=== PATIENT | male | born 1955 | race Caucasian/White ===

== ENCOUNTER → 2018-04-14 07:27 | Outpatient (CLI) | payer OTHER, SELFPAY ==
[2018-04-14 10:33] LABS: ALB/GLOB Ratio 1.2 RATIO (0.9-2.4); AST(SGOT) 21 U/L (15-37); Alanine Aminotransfer ALT/SGPT 48 U/L (16-61); Alkaline Phosphatase 71 U/L (45-117); Anion Gap 7 (5-15); BUN 16 mg/dL (7-18); BUN/Creat Ratio 15.1 RATIO (10-20); Calcium,Total 9.3 mg/dL (8.5-10.1); Chloride 102 mmol/L (98-107); Cholesterol 213 mg/dL (200); Creatinine, Serum 1.06 mg/dL (0.70-1.30); EST Glomerular Filtration Rate 75 mL/min (>60); Est Glom Filt Rate - Afr Amer 91 mL/min (>60); Globulin 3.4 g/dL (2.2-4.2); Glucose 103 mg/dL (74-106); High Density Lipoprotein 40 mg/dL; Potassium 4.1 mmol/L (3.5-5.1); Protein, Total 7.4 g/dL (6.4-8.2); Sodium Level 140 mmol/L (136-145); Triglycerides 151 mg/dL; Very Low Density Lipoprotein 30 mg/dL (5-40)
== END ==
PROVIDERS: Family Provider Family Medicine; PCP Family Medicine; Referring Provider Family Medicine; Visit Provider Family Medicine
DX: I10 Essential (primary) hypertension (principal); E78.00 Pure hypercholesterolemia, unspecified; M53.9 Dorsopathy, unspecified
CPT/HCPCS: 36415; 80053; 80061

== ENCOUNTER → 2018-08-01 15:44 | Outpatient (CLI) | payer OTHER, SELFPAY ==
[2018-08-01 15:08] VITALS: BMI 32.0
--- NOTE | 2018-08-01 15:47 | RAD_ITS ---
STUDY: X-RAY - RIGHT SHOULDER REASON FOR EXAM: Male, 63 years old. Fall on ice. TECHNIQUE: 4 view(s) of the shoulder, including frontal internal and external rotation views. COMPARISON: None. FINDINGS: There is mild to moderate degenerative arthrosis of the glenohumeral articulation. There is mild hypertrophic osteoarthrosis of the acromioclavicular joint with inferior osseous spur formation. Normal acromion. There is inferior periarticular spurring of the humeral head. Mild cortical irregularity and subcortical cystic degenerative change in the greater tubercle of the humerus. The soft tissue structures are unremarkable. There is no demonstrated fracture. Normal visualized pulmonary apex. RAD/Shoulder min 2 Views IMPRESSION: Generative changes of the right shoulder and acromioclavicular joint, as noted. There is no demonstrated acute fracture. Electronically Signed: Beto Wade MD at 16:09 EST , Service support ,
== END ==
PROVIDERS: Family Provider Family Medicine; PCP Family Medicine; Referring Provider Nurse Practitioner Family; Visit Provider Nurse Practitioner Family
DX: M25.511 Pain in right shoulder (principal); W00.9XXA Unspecified fall due to ice and snow, initial encounter
CPT/HCPCS: 73030

== ENCOUNTER → 2018-08-27 15:15 | Outpatient (CLI) | payer OTHER, SELFPAY ==
[2018-08-19 15:21] VITALS: BMI 32.0
--- NOTE | 2018-08-27 15:15 | RAD_ITS ---
STUDY: X-RAY - ORBITS REASON FOR EXAM: Male, 63 years old. This study is being performed as a clearance examination for exclusion of orbital metal, prior to the performance of an MRI examination. TECHNIQUE: 2 view(s) of the orbits were obtained. COMPARISON: None. FINDINGS: Normal bilateral orbits without a metallic orbital foreign body. Normal visualized facial bones. Normal paranasal sinuses. The soft tissue structures are unremarkable. RAD/Orbits for Foreign Body IMPRESSION: No demonstrated metallic orbital foreign body. The patient is cleared for an MRI examination. Electronically Signed: Aaron Bingham, at 15:56 EST , Service support ,
--- NOTE | 2018-08-27 15:18 | MRI_ITS ---
STUDY: MRI RIGHT SHOULDER REASON FOR EXAM: Male, 63 years old. Shoulder pain TECHNIQUE: Standardized fat and water weighted pulse sequences were obtained in all 3 orthogonal planes. COMPARISON: None. FINDINGS: There is a full-thickness tear of the supraspinatus tendon which is retracted 2.4 cm. There is elevation of the humeral head in relationship to the acromion. There is increased T2 signal within the distal infraspinatus tendon which is not retracted.. The subscapularis tendon is intact. There is small fluid collection within the joint. There are multiple small signal abnormalities within the joint fluid. There is edema within the soft tissues with increased T2 signal. There are articular and small osteochondral defects within the greater tuberosity. There is small subchondral geodes. There are humeral head and glenoid osteophytes. There are likely small glenoid articular defects.. There is deformity with increased signal within the anterior superior labrum.. There are distal clavicle and acromial osteophytes which cause significant compression on the supraspinatus muscle and tendon. Normal deltoid muscle. Normal trapezius muscle. There is thickening of the anterior-inferior capsule. MRI/Upper Ext Joint Only(Routine) IMPRESSION: Full-thickness tear of the supraspinatus tendon which is related retracted 2.4 cm Tendinosis and possible partial tear of the infraspinatus tendon Small fluid collection within the joint, multiple small signal abnormalities within the joint fluid, most likely a small joint mice versus synovial osteochondromatosis less likely Glenohumeral osteoarthrosis, likely small glenoid cartilage defects Thickening of the anterior inferior capsule which can be associated with adhesive capsulitis Significant degeneration anterosuperiorly labrum likely degenerative tear Articular and osteochondral defects within the greater tuberosity Electronically Signed: Peewee Matias, at 22:03 EST Tel , Service support ,
== END ==
PROVIDERS: Family Provider Family Medicine; PCP Family Medicine; Referring Provider Family Medicine; Visit Provider Family Medicine
DX: M79.601 Pain in right arm (principal)
CPT/HCPCS: 70030; 73221

== ENCOUNTER → 2019-06-10 07:49 | Outpatient (CLI) | payer OTHER, SELFPAY ==
[2019-05-21 15:22] VITALS: BMI 32.3
[2019-06-10 10:27] LABS: ALB/GLOB Ratio 1.2 RATIO (0.9-2.4); AST(SGOT) 26 U/L (15-37); Alanine Aminotransfer ALT/SGPT 62 U/L (16-61); Alkaline Phosphatase 83 U/L (45-117); Anion Gap 6 (5-15); BUN 16 mg/dL (7-18); BUN/Creat Ratio 14.5 RATIO (10-20); Chloride 104 mmol/L (98-107); Cholesterol 206 mg/dL (200); EST Glomerular Filtration Rate 72 mL/min (>60); Est Glom Filt Rate - Afr Amer 87 mL/min (>60); Globulin 3.4 g/dL (2.2-4.2); Glucose 91 mg/dL (74-106); High Density Lipoprotein 39 mg/dL; Potassium 3.5 mmol/L (3.5-5.1); Protein, Total 7.4 g/dL (6.4-8.2); Sodium Level 140 mmol/L (136-145); Triglycerides 195 mg/dL; Very Low Density Lipoprotein 39 mg/dL (5-40)
== END ==
PROVIDERS: Family Provider Family Medicine; PCP Family Medicine; Referring Provider Family Medicine; Visit Provider Family Medicine
DX: E78.00 Pure hypercholesterolemia, unspecified (principal); I10 Essential (primary) hypertension
CPT/HCPCS: 36415; 80053; 80061

== ENCOUNTER 2019-12-11 23:31 | Emergency (ER) | payer OTHER, SELFPAY ==
[2019-05-21 15:22] VITALS: BMI 32.3
[2019-12-11 23:32] VITALS: BP 139/85; PULSE 80; RESP 18; TEMP 36.6; O2SAT 97; BMI 28.0
[2019-12-12] MEDS: oxyCODONE 5 MG Tablet PO (00:55)
[2019-12-12] MEDS: Ondansetron ODT 4 MG Tablet 8 MG PO (00:55)
[2019-12-12] MEDS: Ketorolac 30 MG/ML Syringe IM (00:55)
[2019-12-12 01:04] LABS: Bacteria 0 SEEN /hpf (None Seen); Mucous, Urine 0 SEEN /hpf (<or=2+); Squamous Epithelial Cells - UA 0 SEEN /hpf (0-5); White Blood Cells 0 SEEN /hpf (0-5)
[2019-12-12 01:07] LABS: Color, Urine Yellow (Yellow); Glucose, Dipstick Normal (Normal); Leukocyte Esterase-Dipstick Negative /ul (Negative); Nitrite-Dipstick Negative (Negative); Occult Blood-Urine 250 /ul (Negative); Protein-Dipstick Negative (Negative); Urine Bilirubin Dipstick Negative (Negative); Urine Clarity Clear (Clear); Urine Urobilinogen Normal (Normal)
[2019-12-12 01:33] LABS: Ketone-Dipstick 150 mg/dl (Negative)
[2019-12-12 01:54] LABS: Red Blood Cells-Urine 25-50 SEEN /hpf (0-5)
--- NOTE | 2019-12-12 02:03 | ED.DCSUM_ITS ---
History of Present Illness Chief Complaint: Flank Pain Informant: Patient, Family - Abdominal Pain/Flank Pain Onset: Yesterday Context: Sudden Onset Timing: Intermittent Quality: Aching Location: Right Flank - mostly in back Current Severity: Gone Maximum Severity: Severe Relieved by: Nothing - Nausea/Vomiting/Emesis GI Symptom: Nausea. Negative for: Vomiting - Diarrhea/Melena/Hematochezia GI Symptom: Negative for: Diarrhea, Melena, Hematochezia Associated Symptoms: Dysuria - once. Negative for: Frequency, Hematuria, Urgency Narrative: No injury, spontaneous onset of pain. No fevers. No chest pain or shortness of breath. No history of kidney stones. - Past Medical History (1) High blood pressure Status: Chronic (2) High cholesterol Status: Chronic Past Medical History - Allergies and Home Meds Allergies/Adverse Reactions: Allergies Penicillins Allergy (Intermediate, Verified 09/04/18 09:18) Rash Primary Care Physician: Hossein Rivera DO [Primary Care Provider] - Lives: Spouse/ Significant Other Smoking Status: Never smoker Review of Systems General: Denies: Chills, Fever, Sweats Eyes: Denies: Visual changes - bilaterally, Diplopia ENT: Denies: Rhinorrhea, Sore throat Cardiovascular: Denies: Chest pain, Palpitations Respiratory: Denies: Dyspnea, Cough, Dyspnea on exertion Gastrointestinal: Reports: Abdominal pain, Nausea. Denies: Vomiting, Diarrhea, Melena, Hematochezia Genitourinary: Reports: Dysuria. Denies: Hematuria, Frequency Musculoskeletal: Reports: Back pain. Denies: Neck pain, Extremity Pain Skin: Denies: Rash, Wounds Neurological: Denies: Headache, Weakness, Numbness Physical Exam Vital Signs/Narrative: Vital Signs Temp Pulse Resp BP Pulse Ox 12/11/19 23:32 97.8 F 80 18 139/85 H 97 Inital Vital Signs reviewed: Yes General: Well nourished, Well developed, No Acute Distress Head: Normocephalic, Atraumatic Eyes: Perrl, EOMI ENT: Moist mucous membranes, No rhinorrhea Neck: Supple, Nontender Cardiovascular: Regular rate, Regular rhythm, No murmurs Respiratory: No distress, CTA bilaterally, Chest nontender Abdomen: Soft, Nontender, Nondistended, Normal bowel sounds Back: Nontender, Normal Inspection. Negative for: CVA tenderness Extremities: Nontender, No edema. Negative for: Calf Tenderness Skin: Normal color, No rash, No Trauma Neurological: Alert, Oriented x3, Cranial nerves II-XII grossly intact, Normal Strength, Normal Sensation Psychological: Normal affect, Normal Mood Diagnostic/Tx/Re-eval Impressions Abdomen/Pelvis CT 12/12/19 23:55 IMPRESSION: There is a 3 mm stone at the RIGHT ureterovesical junction causing moderate RIGHT hydronephrosis and hydroureter. The LEFT kidney and ureter are unremarkable. Incidental retroaortic LEFT renal vein. Normal visualized stomach. Normal small intestine. Normal colon. The appendix is visualized and appears normal. There is degenerative disc change at L4-5 and L5-S1. There is bilateral facet arthropathy at these levels. There is bilateral spondylolysis and grade 1 anterior spondylolisthesis at L5-S1. Electronically Signed: Aman Roy MD at 1:25 EDT , Service support , 12/12/19 23:55 Abdomen/Pelvis without Cont [CT] Stat Laboratory Results 12/12/19 00:45 Urine Color Yellow Urine Clarity Clear Urine pH 5.0 Ur Specific [place] 1.020 Urine Protein Negative Urine Glucose (UA) Normal Urine Ketones 150 H Urine Occult Blood 250 H Urine Nitrite Negative Urine Bilirubin Negative Urine Urobilinogen Normal Ur Leukocyte Esterase Negative Urine RBC 25-50 SEEN Urine WBC 0 SEEN Ur Squamous Epith Cells 0 SEEN Urine Bacteria 0 SEEN Urine Mucus 0 SEEN - Medical Decision Making Patient did start having significant flank pain again, this was treated with Toradol and oxycodone, he did well with improvement. CT does show a kidney stone which was suspected, it did not show a AAA or anything else dangerous. He has hydronephrosis from a 3 mm UVJ stone likely causing his symptoms. Urine shows no signs of infection. I do not think blood work is necessary right now, expectant management is indicated. Given prescription for analgesics, urine strainers, appropriate discharge instructions for follow-up with urology as needed if still having problems in a week, we discussed reasons to return. He i s comfortable with that plan. ED Disposition - Plan for ED Patient: Disposition: Home or Assisted Living Diagnosis: Urolithiasis, Ureteral colic Instructions: ED Renal Stone w Colic Prescriptions: Oxycodone HCl/Acetaminophen [Percocet 5/325] 1 tab PO Q6H PRN PRN 3 Days #12 tab PRN Reason: Pain Prescription Printed Ondansetron [Zofran Odt] 8 mg PO Q8H PRN PRN #10 tab PRN Reason: Nausea Prescription Printed Referrals: Hossein Rivera DO [Primary Care Provider] - Luis Daniel Luu MD [STAFF PHYSICIAN] - 1 Week if not improving
--- NOTE | 2019-12-12 23:55 | CT_ITS ---
STUDY: CT ABDOMEN AND PELVIS WITHOUT CONTRAST REASON FOR EXAM: Male, 64 years old. RT FLANK PAIN SINCE YESTERDAY RADIATION DOSAGE (If Supplied By Facility): CTDIvol = ( 9.47 ) mGy, DLP = ( 548.92 ) mGycm TECHNIQUE: Transaxial images were obtained from the dome of the diaphragm to the symphysis pubis without oral contrast, and without intravenous contrast. Sagittal and coronal images were reconstructed. Individualized dose optimization techniques were used for this CT. COMPARISON: None. FINDINGS: There are nonenlarged calcified RIGHT hilar lymph nodes. There is moderate COPD. There are NO acute infiltrates. Normal liver. Normal gallbladder and extrahepatic biliary system. Normal spleen. Normal pancreas. Normal bilateral adrenal glands. There is a 3 mm stone at the RIGHT ureterovesical junction causing moderate RIGHT hydronephrosis and hydroureter. The LEFT kidney and ureter are unremarkable. Incidental retroaortic LEFT renal vein. Normal visualized stomach. Normal small intestine. Normal colon. The appendix is visualized and appears normal. Normal abdominal aorta. Normal inferior vena cava. Normal retroperitoneum. Normal urinary bladder. Normal prostate. There is NO ascites, free air, abscess or adenopathy. Normal abdominal wall. There is degenerative disc change at L4-5 and L5-S1. There is bilateral facet arthropathy at these levels. There is bilateral spondylolysis and grade 1 anterior spondylolisthesis at L5-S1. CT/Abdomen/Pelvis without Cont IMPRESSION: There is a 3 mm stone at the RIGHT ureterovesical junction causing moderate RIGHT hydronephrosis and hydroureter. The LEFT kidney and ureter are unremarkable. Incidental retroaortic LEFT renal vein. Normal visualized stomach. Normal small intestine. Normal colon. The appendix is visualized and appears normal. There is degenerative disc change at L4-5 and L5-S1. There is bilateral facet arthropathy at these levels. There is bilateral spondylolysis and grade 1 anterior spondylolisthesis at L5-S1. Electronically Signed: Aman Roy MD at 1:25 EDT , Service support ,
== END 2019-12-12 02:31 | disposition home or self-care (01) ==
PROVIDERS: Emergency Provider Emergency Medicine; PCP Family Medicine
DX: N13.2 Hydronephrosis with renal and ureteral calculous obstruction (principal); E78.00 Pure hypercholesterolemia, unspecified; Z88.0 Allergy status to penicillin; M43.17 Spondylolisthesis, lumbosacral region; M51.37 Other intervertebral disc degeneration, lumbosacral region
CPT/HCPCS: 74176; 81001; 96372; 99283

== ENCOUNTER → 2021-04-04 12:09 | Outpatient (CLI) | payer MEDICARE, OTHER, SELFPAY ==
[2021-04-04 15:17] LABS: Absolute Lymphocyte Count 1.62 X10^3/uL (0.83-4.51); Absolute Neutrophil Count 2.1 X10^3/uL (2.0-7.7); Basophil# 0.05 X10^3/uL; Basophil% 1.1 % (0-1); Eosinophil# 0.29 X10^3/uL; Eosinophils% 6.1 % (0-5); Hematocrit 44.7 % (40-54); Hemoglobin 14.8 g/dL (13.0-16.5); Lymphocyte # 1.62 X10^3/ul (0.83-4.51); Lymphocyte % 34.2 % (19-41); Mean Corp Hgb Conc 33.1 g/dL (32-36); Mean Corpuscular Hgb 30.5 pg (27.0-32.0); Mean Corpuscular Volume 92.2 fL (80-94); Mean Platelet Vol. 10.5 fl (6.2-12.0); Monocyte# 0.64 X10^3/uL; Monocyte% 13.5 % (0-10); NRBC Flagged by Analyzer 0 % (0-5); Neutrophil # 2.13 X10^3/uL (2.7-7.7); Neutrophil % 44.9 % (47-70); Platelet Count 272 K/mm3 (150-450); RBC Distribution Width CV 12.3 % (11.6-14.6); RBC Distribution Width SD 40.6 fl (35.1-43.9); Red Blood Count 4.85 M/mm3 (4.6-6.2); White Blood Count 4.7 K/mm3 (4.4-11.0)
[2021-04-04 15:34] LABS: AST(SGOT) 23 U/L (15-37); Alanine Aminotransfer ALT/SGPT 36 U/L (16-61); Albumin, Serum 3.9 g/dL (3.2-5.0); Alkaline Phosphatase 74 U/L (45-117); Anion Gap 8 (5-15); BUN 17 mg/dL (7-18); BUN/Creat Ratio 18.4 RATIO (10-20); Calcium,Total 9.2 mg/dL (8.5-10.1); Chloride 106 mmol/L (98-107); Creatinine, Serum 0.93 mg/dL (0.70-1.30); EST Glomerular Filtration Rate 87 mL/min (>60); Est Glom Filt Rate - Afr Amer 105 mL/min (>60); Globulin 3.8 g/dL (2.2-4.2); Glucose 92 mg/dL (74-106); Protein, Total 7.7 g/dL (6.4-8.2); Sodium Level 142 mmol/L (136-145)
== END ==
PROVIDERS: PCP Family Medicine; Referring Provider Family Medicine; Visit Provider Family Medicine
DX: I10 Essential (primary) hypertension (principal); M53.9 Dorsopathy, unspecified
CPT/HCPCS: 36415; 80053; 85025

== ENCOUNTER → 2023-03-27 | Outpatient (CLI) | payer MEDICARE, OTHER, SELFPAY ==
--- NOTE | 2023-03-27 14:42 | RAD_ITS ---
STUDY: X-RAY CHEST REASON FOR EXAM: Male, 67 years old. dust exposure TECHNIQUE: Frontal and lateral views of the chest. COMPARISON: None. FINDINGS: Relatively low lung volumes. Streaky areas of mild scarring or subsegmental atelectasis in both lung bases. No infiltrates. No effusions. Normal size heart. Normal mediastinum and christina. Normal visualized pulmonary arteries. Normal visualized aortic arch and descending thoracic aorta. Normal visualized thoracic spine. Normal visualized ribs, clavicles, and shoulders. There is no demonstrated abnormality of the visualized soft tissue structures of the upper abdomen. RAD/Chest PA and Lateral IMPRESSION: Streaky areas of mild scarring or subsegmental atelectasis in both lung bases. Electronically Signed: Demetri Martini MD at 17:33 EDT ,
[2023-03-27 15:49] LABS: AST(SGOT) 25 U/L (15-37); Alanine Aminotransfer ALT/SGPT 43 U/L (16-61); Albumin, Serum 3.9 g/dL (3.2-5.0); Alkaline Phosphatase 78 U/L (45-117); Anion Gap 3 (5-15); BUN 17 mg/dL (7-18); BUN/Creat Ratio 17.2 RATIO (10-20); Calcium,Total 9.1 mg/dL (8.5-10.1); Chloride 106 mmol/L (98-107); Cholesterol 201 mg/dL (200); Creatinine, Serum 0.99 mg/dL (0.70-1.30); EST Glomerular Filtration Rate 81 mL/min (>60); Est Glom Filt Rate - Afr Amer 97 mL/min (>60); Globulin 3.9 g/dL (2.2-4.2); Glucose 101 mg/dL (74-106); High Density Lipoprotein 39 mg/dL; PSA,Total- Diagnostic 0.97 ng/mL (0.0-4.0); Potassium 3.9 mmol/L (3.5-5.1); Protein, Total 7.8 g/dL (6.4-8.2); Sodium Level 139 mmol/L (136-145); Triglycerides 292 mg/dL; Very Low Density Lipoprotein 58 mg/dL (5-40)
== END | disposition home or self-care (01) ==
PROVIDERS: PCP Family Medicine; Referring Provider Family Medicine; Visit Provider Family Medicine
DX: R05.3 Chronic cough (principal); E78.00 Pure hypercholesterolemia, unspecified; R39.11 Hesitancy of micturition; I10 Essential (primary) hypertension
CPT/HCPCS: 36415; 71046; 80053; 80061; 84153

== ENCOUNTER → 2023-05-31 | Outpatient (CLI) | payer MEDICARE, OTHER, SELFPAY ==
--- NOTE | 2023-05-31 09:00 | RAD_ITS ---
STUDY: X-RAY - RIGHT KNEE REASON FOR EXAM: Male, 68 years old. One month history of pain following a twisting injury. TECHNIQUE: 4 view(s) of the knee. COMPARISON: None. FINDINGS: Normal visualized distal femur. Normal visualized proximal tibia and fibula. Normal proximal tibiofibular articulation. There is mild degenerative arthrosis of the medial femorotibial compartment. Normal lateral femorotibial compartment. Normal patellofemoral articulation. Tiny joint effusion. RAD/Knee 4 or More Views IMPRESSION: Degenerative arthrosis. Tiny joint effusion. Electronically Signed: Aaron Bingham MD at 12:37 EST ,
== END | disposition home or self-care (01) ==
PROVIDERS: PCP Family Medicine; Referring Provider Physician Assistant; Visit Provider Physician Assistant
DX: M25.561 Pain in right knee (principal)
CPT/HCPCS: 73564

== ENCOUNTER → 2024-02-18 | Outpatient (CLI) | payer MEDICARE, OTHER, SELFPAY ==
[2024-02-18 16:54] LABS: Basophil# 0.05 X10^3/uL; Basophil% 0.8 % (0-1); Eosinophil# 0.36 X10^3/uL; Eosinophils% 5.6 % (0-5); Hematocrit 47.6 % (40-54); Hemoglobin 15.7 g/dL (13.0-16.5); Lymphocyte % 21.7 % (19-41); Mean Corpuscular Volume 94.1 fL (80-94); Mean Platelet Vol. 10.4 fl (6.2-12.0); Monocyte# 0.65 X10^3/uL; Monocyte% 10.1 % (0-10); NRBC Flagged by Analyzer 0 % (0-5); Neutrophil # 3.96 X10^3/uL (2.7-7.7); Neutrophil % 61.5 % (47-70); Platelet Count 268 K/mm3 (150-450); RBC Distribution Width CV 12.2 % (11.6-14.6); RBC Distribution Width SD 42.3 fl (35.1-43.9); Red Blood Count 5.06 M/mm3 (4.6-6.2); White Blood Count 6.4 K/mm3 (4.4-11.0)
[2024-02-18 17:01] LABS: ALB/GLOB Ratio 1.1 RATIO (0.9-2.4); AST(SGOT) 25 U/L (15-37); Alanine Aminotransfer ALT/SGPT 41 U/L (16-61); Alkaline Phosphatase 72 U/L (45-117); Anion Gap 4 (5-15); BUN 16 mg/dL (7-18); BUN/Creat Ratio 13.9 RATIO (10-20); Calcium,Total 9.6 mg/dL (8.5-10.1); Chloride 105 mmol/L (98-107); Cholesterol 220 mg/dL (200); Creatinine, Serum 1.15 mg/dL (0.70-1.30); EST Glomerular Filtration Rate 67 mL/min (>60); Est Glom Filt Rate - Afr Amer 81 mL/min (>60); Globulin 3.7 g/dL (2.2-4.2); Glucose 93 mg/dL (74-106); High Density Lipoprotein 46 mg/dL; Potassium 4.2 mmol/L (3.5-5.1); Protein, Total 7.7 g/dL (6.4-8.2); Sodium Level 138 mmol/L (136-145); Triglycerides 272 mg/dL; Very Low Density Lipoprotein 54 mg/dL (5-40)
== END | disposition home or self-care (01) ==
LOC: BIMLAB 14:44
PROVIDERS: PCP Family Medicine; Visit Provider Family Medicine
DX: E78.5 Hyperlipidemia, unspecified (principal); I10 Essential (primary) hypertension; R53.83 Other fatigue
CPT/HCPCS: 36415; 80053; 80061; 84403; 85025

== ENCOUNTER 2024-03-18 06:09 | Day surgery (SDC) | payer MEDICARE, OTHER, SELFPAY ==
[2024-03-18] VITALS (9 sets, daily range): BP systolic 107–143; BP diastolic 72–96; PULSE 58–84; RESP 16–18; TEMP 36.2–36.4; O2SAT 97–99; BMI 31.3
[2024-03-18] MEDS: Lactated Ringers 1,000 ML 15 ML IV (06:35)
--- NOTE | 2024-03-18 06:38 | HP.PCM_ITS ---
HPI - General General Date of Admission: 03/18/24 Date of Service: 03/18/24 Chief Complaint: Screening colonoscopy HPI Narrative MELLY STOCKTON, is a 68 M who presents today for screening colonoscopy. He is not have any abdominal pain. He does not have any cramping. He is not have any chest pain or shortness of breath. He had a colonoscopy back some of the 10 to 12 years ago. The only medicine that he takes on a daily basis is valsartan. [facility] Medical History (Updated 03/16/24 @ 13:59 by Rajan Lloyd) Wears glasses Arthritis Non-smoker Hx of colonic polyps Right shoulder injury High cholesterol High blood pressure Hearing problem Back problem Home Medications ?Medication ?Instructions ?Recorded ?Last Taken ?Type zfxkdwrgwxam-jenchxsm-zjrzqr tablet 1 tab PO DAILY 04/10/18 03/17/24 History naproxen sodium 220 mg capsule 220 mg PO DAILY 03/27/23 03/17/24 History (Aleve) valsartan 160 mg tablet 160 mg PO DAILY 03/16/24 Unknown History valsartan 80 mg tablet 80 mg PO BID 03/16/24 03/18/24 History Allergy/AdvReac Type Severity Reaction Status Date / Time Penicillins Allergy Intermediate Rash Verified 03/18/24 06:34 Family History Father Myocardial infarction Heart disease Hypertension Abdominal aneurysm Mother Hypertension CVA (cerebral vascular accident) Surgical History Hx of colonoscopy Social History (Updated 02/25/24 @ 11:09 by Dhara Maki) household members: spouse housing: house current occupational status: employed Smoking Status: Never smoker alcohol intake: current alcohol intake frequency: a few times a month substance use type: does not use what type of physical activity do you participate in: none ROS Review of Systems ROS Unobtainable: other Constitutional Constitutional: Denies fatigue, fever(s), poor appetite, weight gain or weight loss ENT HEENT: Denies mouth lesions Cardiovascular Cardiovascular: Denies abdominal bloating, abdominal edema or abdominal pain Respiratory/Chest Respiratory/Chest: Denies change in mental status, change in phlegm color, chest congestion or chest tightness Gastrointestinal Gastrointestinal: Denies belching, bloating, change in bowel habits, change in stool character, chewing difficulty, coffee ground emesis, constipation, cramping, diarrhea, dyspepsia, dysphagia, early satiety, excessive flatus, fecal incontinence, heartburn, hematemesis, hematochezia, hemorrhoids, loose stools, melena, nausea, odynophagia, rectal bleeding, tenesmus, vomiting or weight changes Genitourinary Genitourinary: Denies abdominal discomfort, burning urination or itching Musculoskeletal Musculoskeletal: Reports as per HPI; Denies muscle weakness or myalgias Integumentary Integumentary: Denies jaundice Neurologic Neurologic: Denies lack of coordination or weakness Psychiatric Psychiatric: Denies confusion, depression, memory loss, mood swings, paranoia or suicidal ideation Endocrine Endocrinology: Denies systems reviewed and no addt'l complaints, except as documented Hematologic/Lymphatic Hematologic/Lymphatic: Denies anemia, easy bleeding, easy bruising or lymphadenopathy Allergic/Immunologic Allergic/Immunologic: Denies systems reviewed and no addt'l complaints, except as documented Physical Exam Const alert General Appearance: cooperative Orientation / Consciousness: oriented to person HEENT hearing grossly normal bilaterally Head and Scalp: normal to inspection Face and Sinus: face symmetric Nose: external nose normal Mouth: oral and palatal mucosa normal Eyes conjunctivae normal General Eye: normal appearance of both eyes Neck full ROM General: normal visual inspection Lymph Lymphatic: no lymphadenopathy noted Chest inspection of chest normal and palpation of chest normal Chest: symmetrical chest wall rise Resp normal respiratory effort Effort and Inspection: able to speak in complete sentences Cardio regular rate GI non-distended Percussion: normal to percussion Rectal Exam: deferred Neuro Speech: speech normal Gait (Neuro): normal gait Assessment & Plan Assessment/Plan (1) Encounter for screening for malignant neoplasm of colon: PLAN: He was explained alternatives, risk, benefits including not withstanding bleeding, infection, sepsis, perforation, need for surgery . He will have an ASA of 3.
--- NOTE | 2024-03-18 06:43 | PRE.ANES_ITS ---
ASA Classification* ASA Classification ASA Classification: 2 Assessment & Plan Anesthesia* Anesthesia Assessment Anesthesia Assessment: Discussed sedation and/or anesthesia options, risks, benefits, and alternatives with patient/parents/legal guardian/POA. Questions invited. The patient/parents/legal guardian/POA seems to understand and agrees to proceed with anesthesia plan. Reviewed the physical assessment, medical history, allergy history and patient home medications list prior to surgery/procedure/anesthetic and documented any changes. Performed airway and anesthesia risk assessments. Anesthesia Type Anesthesia Type: MAC Anesthesia Focused Assessment* Temperature: 97.2 F Pulse Rate: 84 Blood Pressure: 143/78 Respiratory Rate: 17 Pulse Ox: 99 Airway Assessment Mouth opens: >3 cm Mallampati Score: II Focused Labs Anesthesia Preop lab: CBC WBC 6.4 K/mm3 (4.4-11.0) 02/18/24 14:44 RBC 5.06 M/mm3 (4.6-6.2) 02/18/24 14:44 Hgb 15.7 g/dL (13.0-16.5) 02/18/24 14:44 Hct 47.6 % (40-54) 02/18/24 14:44 Plt Count 268 K/mm3 (150-450) 02/18/24 14:44 CHEMISTRY Potassium 4.2 mmol/L (3.5-5.1) 02/18/24 14:44 Sodium 138 mmol/L (136-145) 02/18/24 14:44 BUN 16 mg/dL (7-18) 02/18/24 14:44 Creatinine 1.15 mg/dL (0.70-1.30) 02/18/24 14:44 Glucose 93 mg/dL (74-106) 02/18/24 14:44 COAG Pre-Assessment Diagnosis/Proposed Procedure Planned Operative Procedure(s): COLONOSCOPY Anesthesia History Anesthesia History - supervisor fabrication: Anesthesia History - supervisor fabrication Hx Hospitalization No 03/16/24 13:48 Any Problems With Anesthesia No 03/16/24 13:48 Cholinesterase deficiency No 03/16/24 13:48 You/Your Family Experience No 03/16/24 13:48 fever (hyperthermia) with Relationship Recent Exposure to Contagious No 03/18/24 06:37 Disease Does patient have nerve No 03/16/24 13:48 stimulator Patient instructed to have device shut off --Does patient have Pacemaker No 03/18/24 06:37 or ICD? When Was Last Pacemaker Check QUESTION #4 FULL TEXT: You/Your Family Experience fever (hyperthermia) with Anesthesia Last Oral Intake Last Oral intake: Last Oral Intake NPO since 04:30 03/18/24 06:37 Meds taken in AM with sips of Yes 03/18/24 06:37 water? Meds patient instructed to losartan, split prep 03/18/24 06:37 take am of surgery PONV PONV - supervisor fabrication: PONV - supervisor fabrication Female No 03/16/24 13:48 HX of Motion Sickness No 03/16/24 13:48 HX of N/V After Surgery No 03/16/24 13:48 Non-Smoker Yes 03/16/24 13:48 Duration of Surgery greater No 03/16/24 13:48 than 60 minutes Number of Risk Factors 1 03/16/24 13:48 PONV Score Low Risk 03/16/24 13:48 Height & Weight Height & Weight: Anesthesia: Height & Weight Height 5 ft 10 in 03/18/24 06:37 Weight: 99 kg 03/18/24 06:37 Body Mass Index (BMI) 31.3 03/18/24 06:37 Respiratory Assessment Respiratory Assessment - supervisor fabrication: Respiratory Tract Infection Hx - supervisor fabrication Hx Respiratory Tract Infection No 03/16/24 13:48 STOP Sleep Apnea STOP Sleep Apnea - supervisor fabrication: STOP Sleep Apnea - supervisor fabrication Hx Hypertension Yes 03/16/24 13:48 Hx Sleep Apnea No 03/16/24 13:48 CPAP BIPAP Do you snore loudly (louder Yes 03/16/24 13:48 than talking or can be heard Do you often feel tired/ No 03/16/24 13:48 fatigued/ sleepy during daytime? Has anyone observed you stop No 03/16/24 13:48 breathing during sleep? STOP Results Positive 03/16/24 13:48 QUESTION #5 FULL TEXT : Do you snore loudly (louder than talking or can be heard through closed doors)? 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 Specify any problems Hx of Preganancy in last 3 N/A 03/16/24 13:48 Months Nurse Filling Out Transfusion [email or web address] 03/16/24 13:48 & Questions: Date: 03/16/24 03/16/24 13:48 Time: 13:53 03/16/24 13:48 Patient unable to answer at this time (ie. confused, unrespo /Reproduction History /Reproductive History - supervisor fabrication: /Reproductive Hx- supervisor fabrication Hx Now Gestational Age (in weeks): EDC: Hx Hx Para Hx Section SAB Active Medications Active Medications: Current Medications Generic Name Dose Route Start Last Admin Trade Name Freq PRN Reason Stop Dose Admin Lactated Ringer's 1,000 mls @ 15 mls/hr 03/18/24 06:30 03/18/24 06:35 IV 15 mls/hr .Q48H ALEX Administration PFSH Medical History Wears glasses Arthritis Non-smoker Hx of colonic polyps Right shoulder injury High cholesterol High blood pressure Hearing problem Back problem Home Medications ?Medication ?Instructions ?Recorded ?Last Taken ?Type qmyfvdqgomzt-rbgkijfq-ggfvhc tablet 1 tab PO DAILY 04/10/18 03/17/24 History naproxen sodium 220 mg capsule 220 mg PO DAILY 03/27/23 03/17/24 History (Aleve) valsartan 160 mg tablet 160 mg PO DAILY 03/16/24 Unknown History valsartan 80 mg tablet 80 mg PO BID 03/16/24 03/18/24 History Allergy/AdvReac Type Severity Reaction Status Date / Time Penicillins Allergy Intermediate Rash Verified 03/18/24 06:34 Family History Father Myocardial infarction Heart disease Hypertension Abdominal aneurysm Mother Hypertension CVA (cerebral vascular accident) Surgical History Hx of colonoscopy Social History household members: spouse housing: house current occupational status: employed Smoking Status: Never smoker alcohol intake: current alcohol intake frequency: a few times a month substance use type: does not use what type of physical activity do you participate in: none Review of Systems (Anesthesia) ROS Narrative System reviewed and no additional complaints, except as documented.
--- NOTE | 2024-03-18 07:30 | COLBX_PTH ---
PATIENT: MELLY STOCKTON GENE LOC: EN U#:[id number] AGE/SX: 68/M ROOM: RE03/18/[address]: Dr. Nathaniel Zamora DO : 1955 BED: DIS: 03/18/2024 SPEC #: [id number] RECD: 03/18/24 09:33 STATUS: KATLIN REVeronica #: [id number] LUPILLO: 03/18/24 07:[address]: Nathaniel Zamora DEPT: SURGICAL PATHOLOGY RECD BY: Rashawn Spears ENTERED: 03/18/24 14:12 SP TYPE: COLON BX OTHR DR: Dr. Hossein Rivera DO Tissues: Ascending colon Procedures: Surgery Specimen Level IV HEADER OPERATION: Colonoscopy with biopsy PRE-OP DIAGNOSIS: Encounter for screening for malignant neoplasm of colon TISSUE SUBMITTED: Ascending colon biopsy MICROSCOPIC DIAGNOSIS Ascending colon polyp, biopsy: No specimen/mucosal tissue is noted. SJ.mr 03/19/2024 COMMENT Case has been reviewed in consultation with Dr. Oneal who concurs with the above diagnosis. IDC:AM MICROSCOPIC DESCRIPTION Slides are reviewed. GROSS DESCRIPTION Received in fixative is one container labeled with the patient's name and designated Ascending colon polyp biopsy. No specimen is noted in the specimen container. Formalin is in filter and submitted for cell block preparation. 03/18/2024 TC: Cannot code CPT:13669
--- NOTE | 2024-03-18 07:43 | OP.COLON_ITS ---
Patient Name: Yohan Ledsema Procedure Date: 03/18/2024 7:06 AM Date of : 1955 Age: 68 Procedure: Colonoscopy Indications: Screening for colorectal malignant neoplasm Providers: Nathaniel Zamora DO Referring MD: Nathaniel Zamora DO Medicines: Monitored Anesthesia Care Patient Profile: This is a 68 year old male. Refer to note in patient chart for documentation of history and physical. Last Colonoscopy: more than 10 years ago. Complications: No immediate complications. Procedure: Pre-Anesthesia Assessment: - Prior to the procedure, a History and Physical was performed, and patient medications and allergies were reviewed. The patient is competent. The risks and benefits of the procedure and the sedation options and risks were discussed with the patient. All questions were answered and informed consent was obtained. Patient identification and proposed procedure were verified by the physician in the pre-procedure area. Mental Status Examination: alert and oriented. Airway Examination: normal oropharyngeal airway and neck mobility. Respiratory Examination: clear to auscultation. CV Examination: normal. Prophylactic Antibiotics: The patient does not require prophylactic antibiotics. Prior Anticoagulants: The patient has taken no anticoagulant or antiplatelet agents. ASA Grade Assessment: II - A patient with mild systemic disease. After reviewing the risks and benefits, the patient was deemed in satisfactory condition to undergo the procedure. The anesthesia plan was to use monitored anesthesia care (MAC). Immediately prior to administration of medications, the patient was re-assessed for adequacy to receive sedatives. The heart rate, respiratory rate, oxygen saturations, blood pressure, adequacy of pulmonary ventilation, and response to care were monitored throughout the procedure. The physical status of the patient was re-assessed after the procedure. After I obtained informed consent, the scope was passed under direct vision. Throughout the procedure, the patient's blood pressure, pulse, and oxygen saturations were monitored continuously. The Colonoscope was introduced through the anus and advanced to the cecum, identified by appendiceal orifice and ileocecal valve. The colonoscopy was performed without difficulty. The patient tolerated the procedure well. The quality of the bowel preparation was adequate. The ileocecal valve, appendiceal orifice, and rectum were photographed. Scope In: 7:21:15 AM Scope Withdrawal Time 0 hours 11 minutes 41 seconds Scope Out: 7:38:09 AM Total Procedure Duration Time 0 hours 16 minutes 54 seconds Findings: The perianal and digital rectal examinations were normal. A 3 mm polyp was found in the ascending colon. The polyp was sessile. The polyp was removed with a jumbo cold forceps. Resection and retrieval were complete. Verification of patient identification for the specimen was done. Estimated blood loss was minimal. No other significant abnormalities were identified in a careful examination of the remainder of the colon. Two small-mouthed diverticula were found in the recto-sigmoid colon. Impression: - One 3 mm polyp in the ascending colon, removed with a jumbo cold forceps. Resected and retrieved. - Diverticulosis in the recto-sigmoid colon. Recommendation: - Discharge patient to home. - Resume previous diet. - Continue present medications. - Await pathology results. - Repeat colonoscopy in 5 years for surveillance. Procedure Code(s): --- Professional --- 06236, Colonoscopy, flexible; with biopsy, single or multiple CPT copyright 2021 [employer]. All rights reserved. The codes documented in this report are preliminary and upon first aid attendant review may be revised to meet current compliance requirements. Nathaniel Zamora DO 03/18/2024 7:43:29 AM This report has been signed electronically. Number of Addenda: 0 Note Initiated On: 03/18/2024 7:06 AM
--- NOTE | 2024-03-18 07:44 | OP.CCLET_ITS ---
03/18/2024 Hossein Rivera Re : Colonoscopy procedure for Yohan Ledesma Dear Dr. Rivera This procedure was performed on Monday, March 18, 2024. My impressions and recommendations are as follows: Impressions : - One 3 mm polyp in the ascending colon, removed with a jumbo cold forceps. Resected and retrieved. - Diverticulosis in the recto-sigmoid colon. Recommendations : - Discharge patient to home. - Resume previous diet. - Continue present medications. - Await pathology results. - Repeat colonoscopy in 5 years for surveillance. My findings are described in the full procedure note, which is enclosed. If I can be of further assistance, please feel free to contact me at . Sincerely, Nathaniel Zamora, 03/18/2024 7:43:29 AM This report has been signed electronically.
--- NOTE | 2024-03-18 07:45 | PCM.POST.ANE ---
Anesthesia: Postop Eval I Current Vital Signs Temperature: 97.6 F Pulse Rate: 65 Blood Pressure: 126/76 Respiratory Rate: 16 Pulse Ox: 98 Oxygen Delivery Method: Room Air Assessment Airway patent: Yes Spontaneous unlabored respirations: Yes Mental status: Asleep nausea: No Vomiting: No Anesthesia Complication: No Fluid Hydration Crystalloid volume administer (ml): 600 Total IV fluid infused: 600 Progress Note Anesthesia document: Postop Eval 1 completed: Yes
--- NOTE | 2024-03-18 13:39 | PCM.POSTANE2 ---
Anesthesia Postop Eval I Sum Postop Eval Completion status Anesthesia document: Postop Eval 1 completed: Yes Anesthesia Postop Eval I Summary Anesthesia Postop Eval I Summary: Anesthesia Postop Eval I: Assessment Summary Airway patent Yes 03/18/24 07:46 [email or web address] Spontaneous unlabored Yes 03/18/24 07:46 [email or web address] respirations Mental status Asleep 03/18/24 07:46 [email or web address] nausea No 03/18/24 07:46 [email or web address] Vomiting No 03/18/24 07:46 [email or web address] Anesthesia Postop Eval I: Fluid Summary Crystalloid volume administer 600 03/18/24 07:46 [email or web address] (ml) Colloids volume administered ( ml) Blood Product volume administered (ml) Total IV fluid infused 600 03/18/24 07:46 [email or web address] Anesthesia Postop Eval I: Summary Notes Anesthesia Complication No 03/18/24 07:46 [email or web address] Anesthesia Complication Comment: Post-operative progress note Anesthesia: Postop Eval II Evaluation Mental status: Awake Pain Level: 0 nausea: No Vomiting: No
== END 2024-03-18 08:45 | disposition home or self-care (01) ==
LOC: EN 06:09 → AC 06:10
PROVIDERS: PCP Family Medicine; Referring Provider Family Medicine; Visit Provider Internal Medicine Gastroenterology
PROC: 0DJD8ZZ Inspection of Lower Intestinal Tract, Via Natural or Artificial Opening Endoscopic (ICD-10-PCS; CPT 45378; principal; 2024-03-18 07:25)
DX: Z12.11 Encounter for screening for malignant neoplasm of colon (principal); K63.5 Polyp of colon; K57.90 Diverticulosis of intestine, part unspecified, without perforation or abscess without bleeding; E78.00 Pure hypercholesterolemia, unspecified; Z86.010 Personal history of colon polyps; I10 Essential (primary) hypertension; Z79.899 Other long term (current) drug therapy
CPT/HCPCS: 45380; 88305; J7120; J2405

== ENCOUNTER → 2024-03-31 | Outpatient (CLI) | payer MEDICARE, OTHER, SELFPAY ==
--- NOTE | 2024-03-31 14:07 | CT_ITS ---
EXAM: CT Abdomen And Pelvis W/ Contrast Injection HISTORY: abdominal pain luq x 1 month TECHNIQUE: Routine protocol CT abdomen pelvis. IV Contrast: IV 100mL Isovue-300 . Oral Contrast: without. Sagittal and coronal images were reconstructed. RADIATION DOSAGE (If Supplied By Facility): CTDIvol = ( 14.58 ) mGy, DLP = ( 1316.79 ) mGycm Individualized dose optimization techniques were used for this CT. COMPARISON: CT abdomen and pelvis 12/12/2019. LIMITATIONS: None. FINDINGS: LOWER CHEST: Reticular opacities in the lung bases. Calcified granuloma right lower lobe, calcified lymph nodes in the right hilum. Coronary artery calcifications are noted. LIVER: Mild fatty infiltration. GALLBLADDER/BILE DUCTS: Unremarkable. PANCREAS: Unremarkable. SPLEEN: Small calcifications previous granulomatous process. ADRENAL GLANDS: Unremarkable. KIDNEYS / URETERS: Small calculus in the left kidney. No hydronephrosis. BOWEL / MESENTERY: Unremarkable. No bowel obstruction. APPENDIX: Identified and normal. No evidence of acute appendicitis. PERITONEUM: No free air. No free fluid. VESSELS: Abdominal aorta is normal caliber. RETROPERITONEUM: Unremarkable. REPRODUCTIVE ORGANS: Prostate enlarged. BLADDER: Unremarkable. ABDOMINAL WALL: Unremarkable. BONES: No acute abnormality. Bilateral pars defects at L5 with grade 1 spondylolisthesis and degenerative changes. OTHER: None. CT/Abdomen/Pelvis W IV Cont ONLY IMPRESSION: No acute findings. Left nephrolithiasis without hydronephrosis. Enlarged prostate. Electronically Signed: Fatou Costello MD at 22:10 EDT ,
[2024-03-31 14:32] LABS: EGFR FINGERSTICK > 60.0000 mL/min (>60)
== END | disposition home or self-care (01) ==
PROVIDERS: PCP Family Medicine; Referring Provider Family Medicine; Visit Provider Family Medicine
DX: R10.9 Unspecified abdominal pain (principal)
CPT/HCPCS: 74177; Q9967

== ENCOUNTER → 2024-04-01 | Outpatient (CLI) | payer MEDICARE, OTHER, SELFPAY ==
[2024-04-01 12:36] LABS: PSA,Total - Annual Screen 0.93 ng/mL (0.00-4.00)
== END | disposition home or self-care (01) ==
LOC: BIMLAB 09:24
PROVIDERS: PCP Family Medicine; Referring Provider Family Medicine; Visit Provider Family Medicine
DX: R35.0 Frequency of micturition (principal); Z12.5 Encounter for screening for malignant neoplasm of prostate
CPT/HCPCS: 36415; 84153; G0103

== ENCOUNTER → 2024-09-09 | Outpatient (CLI) | payer MEDICARE, OTHER, SELFPAY ==
--- NOTE | 2024-09-09 15:18 | RAD_ITS ---
EXAM: XR Chest, 2 Views CLINICAL INDICATION: CHRONIC COUGH TECHNIQUE: Frontal and lateral views of the chest. COMPARISON: No relevant prior studies available. FINDINGS: LUNGS AND PLEURAL SPACES: Left basilar atelectasis or pneumonia. No pneumothorax. HEART: Unremarkable. No cardiomegaly. MEDIASTINUM: Unremarkable. Normal mediastinal contour. BONES/JOINTS: Unremarkable. No acute fracture. RAD/Chest PA and Lateral IMPRESSION: Left basilar atelectasis or pneumonia. Reading Location: [facility]
== END | disposition home or self-care (01) ==
LOC: MTRAD 15:18
PROVIDERS: PCP Family Medicine; Referring Provider Family Medicine; Visit Provider Family Medicine
DX: R05.3 Chronic cough (principal)
CPT/HCPCS: 71046

== ENCOUNTER → 2024-09-24 | Outpatient (CLI) | payer MEDICARE, OTHER, SELFPAY | END | disposition home or self-care (01) | PROVIDERS: PCP Family Medicine; Referring Provider Family Medicine; Visit Provider Family Medicine | DX: R05.3 Chronic cough (principal) | CPT/HCPCS: 94060; 94726; 94729 ==

== ENCOUNTER → 2024-10-01 | Outpatient (CLI) | payer MEDICARE, OTHER, SELFPAY ==
--- NOTE | 2024-10-02 07:01 | STRESSREP ---
Stress Test Report Pharmacologic myocardial perfusion stress test. 69-year-old man with a history of chest pain Resting EKG demonstrates sinus rhythm with a rate of 78 bpm. Resting blood pressure is 162/92 mmHg. 0.4 mg of regadenoson was infused per usual protocol followed by rapid intravenous saline flush injection. Continuous EKG monitoring was performed. The maximum heart rate was 95 bpm which was 62% of max impacted heart rate the maximum workload was 1 metabolic equivalent. At rest there were no ST or T wave changes noted to suggest ischemia and at peak infusion nonspecific ST changes were noted which did not meet the criteria for ischemia. No clinical angina is noted. The final blood pressure was 150/58 mmHg. Myocardial perfusion protocol. 14.3 mCi of technetium 99m sestamibi was injected at rest. 0.4 mg of regadenoson was infused per usual protocol. At peak infusion 44.4 mCi of technetium 99m sestamibi was injected stress images were obtained stress and rest images were reconstructed and compared in the short axis vertical long and horizontal long axis. Gated images were also obtained. Perfusion SPECT analysis: Review of the stress images demonstrate normal uptake of tracer noted in all areas of the myocardium. The resting images similar demonstrated normal uptake of tracer noted in all areas of the myocardium. No areas of reversibility are noted to suggest ischemia and no previous infarct is noted. Gated SPECT analysis: The gated ejection fraction is 70%. Conclusion: Normal pharmacologic myocardial perfusion stress test. Preserved ejection fraction.
== END | disposition home or self-care (01) ==
LOC: CVS 06:20
PROVIDERS: PCP Family Medicine; Referring Provider Family Medicine; Visit Provider Family Medicine
DX: R06.00 Dyspnea, unspecified (principal)
CPT/HCPCS: 78452; 93017; A9500; A4216; J2785

== ENCOUNTER → 2024-12-09 | Outpatient (CLI) | payer MEDICARE, OTHER, SELFPAY ==
[2024-12-09 13:02] LABS: Absolute Lymphocyte Count 1.58 X10^3/uL (0.83-4.51); Absolute Neutrophil Count 3.6 X10^3/uL (2.0-7.7); Basophil# 0.05 X10^3/uL; Basophil% 0.8 % (0-1); Eosinophil# 0.23 X10^3/uL; Eosinophils% 3.8 % (0-5); Hemoglobin 15.9 g/dL (13.0-16.5); Lymphocyte # 1.58 X10^3/ul (0.83-4.51); Lymphocyte % 26.3 % (19-41); Mean Corp Hgb Conc 34.6 g/dL (32-36); Mean Corpuscular Hgb 31.2 pg (27.0-32.0); Mean Corpuscular Volume 90.4 fL (80-94); Mean Platelet Vol. 9.3 fl (6.2-12.0); Monocyte# 0.55 X10^3/uL; Monocyte% 9.2 % (0-10); NRBC Flagged by Analyzer 0 % (0-5); Neutrophil # 3.58 X10^3/uL (2.7-7.7); Neutrophil % 59.6 % (47-70); Platelet Count 301 K/mm3 (150-450); RBC Distribution Width CV 12.3 % (11.6-14.6); RBC Distribution Width SD 40.5 fl (35.1-43.9); Red Blood Count 5.09 M/mm3 (4.6-6.2)
[2024-12-15 18:08] LABS: Alternaria tenuis <0.10 kU/L (Class 0); Ash, White <0.10 kU/L (Class 0); Aspergillus fumigatus <0.10 kU/L (Class 0); Aspirgillus flavus Negative (Neg:<1:1); Aspirgillus fumigatus Negative (Neg:<1:1); Aspirgillus niger Negative (Neg:<1:1); Bermuda Grass <0.10 kU/L (Class 0); Birch <0.10 kU/L (Class 0); Black Walnut <0.10 kU/L (Class 0); Cat Hair / Dander,Stand <0.10 kU/L (Class 0); Cedar, Mountain <0.10 kU/L (Class 0); Cladosporium herbarum <0.10 kU/L (Class 0); Cockroach, American <0.10 kU/L (Class 0); Cottonwood <0.10 kU/L (Class 0); D farinae Mite <0.10 kU/L (Class 0); D pteronyssinus <0.10 kU/L (Class 0); Dog Epithelia <0.10 kU/L (Class 0); Elm, American White <0.10 kU/L (Class 0); Immunoglobulin E 21 IU/mL (6-495); Immunoglobulin E 22 IU/mL (6-495); Maple/Box Elder <0.10 kU/L (Class 0); Mouse Urine <0.10 kU/L (Class 0); Mulberry, White <0.10 kU/L (Class 0); Oak, White <0.10 kU/L (Class 0); Pecan <0.10 kU/L (Class 0); Penicillium Notatum <0.10 kU/L (Class 0); Pigweed, Rough <0.10 kU/L (Class 0); Ragweed, Short/Common <0.10 kU/L (Class 0); Russian Thistle <0.10 kU/L (Class 0); Sheep Sorrel <0.10 kU/L (Class 0); Sycamore, American <0.10 kU/L (Class 0); Timothy Grass <0.10 kU/L (Class 0)
== END | disposition home or self-care (01) ==
LOC: LAB 12:23
PROVIDERS: PCP Family Medicine; Referring Provider Internal Medicine Critical Care Medicine; Visit Provider Internal Medicine Critical Care Medicine
DX: R05.3 Chronic cough (principal); J45.909 Unspecified asthma, uncomplicated
CPT/HCPCS: 36415; 82785; 85025; 86003; 86606

== ENCOUNTER → 2024-12-24 | Outpatient (CLI) | payer MEDICARE, OTHER, SELFPAY ==
[2024-12-24 13:46] VITALS: PULSE 80; PULSE 83; PULSE 89; PULSE 90; PULSE 91; PULSE 92; PULSE 97; O2SAT 90; O2SAT 91; O2SAT 92; O2SAT 94; O2SAT 95
--- NOTE | 2024-12-25 10:57 | PCM.PSN.6M ---
PSN 6 Minute Walk Test 6 Minute Walk Test 6 Minute Walk Test: 6 Minute Walk Test PSN:6-Minute Walk Test Start: 12/24/24 08:40 Freq: Status: Active Protocol: [id number].6MINW Document 12/24/24 13:46 WLB (Rec: 12/24/24 14:14 WLB [id number]) 6 Minute Walk Test Date Performed 12/24/24 Time Performed 13:45 Height 27.17 in Weight: 209 lb Weight in Pounds 209.[address]: Zachery Rivera Assistive device None used: Pre-test Oxygen Delivery Room Air Method Pulse Ox (%) 94 Pulse Rate (60-100 89 beats/min) Dyspnea James Scale ( 2 0-10) Exertion James Scale 7 (6-20) 1st minute Oxygen Delivery Room Air Method Pulse Ox (%) 91 Pulse Rate (60-100 91 beats/min) 2nd minute Oxygen Delivery Room Air Method Pulse Ox (%) 91 Pulse Rate (60-100 92 beats/min) 3rd minute Oxygen Delivery Room Air Method Pulse Ox (%) 92 Pulse Rate (60-100 83 beats/min) 4th minute Oxygen Delivery Room Air Method Pulse Ox (%) 90 Pulse Rate (60-100 80 beats/min) 5th minute Oxygen Delivery Room Air Method Pulse Ox (%) 91 Pulse Rate (60-100 90 beats/min) 6th minute Oxygen Delivery Room Air Method Pulse Ox (%) 92 Pulse Rate (60-100 91 beats/min) Dyspnea James Scale ( 3 0-10) Exertion James Scale 10 (6-20) Post-test Oxygen Delivery Room Air Method Pulse Ox (%) 95 Pulse Rate (60-100 97 beats/min) Full Laps Walked 21 Partial Lap, Number 0 of Tiles Walked Total Distance 1239 Walked (ft) Interpretation Interpretation: The patient ambulated 1239 feet over the course of 6 minutes beginning on room air without assistive devices. Pretesting oxygen saturation was noted to be 94% on room air. With ambulation, the alyssa oxygen saturation was 90%. There was no significant exertional oxygen desaturation. Recommendations Recommendations: There is no indication for the use of supplemental oxygen at this time.
== END | disposition home or self-care (01) ==
LOC: PSN 13:39
PROVIDERS: PCP Family Medicine; Referring Provider Internal Medicine Critical Care Medicine; Visit Provider Internal Medicine Critical Care Medicine
DX: R05.3 Chronic cough (principal)
CPT/HCPCS: 94618

== ENCOUNTER → 2024-12-28 | Outpatient (CLI) | payer MEDICARE, OTHER, SELFPAY ==
--- NOTE | 2024-12-28 18:21 | CT_ITS ---
PROCEDURE: CHEST WITHOUT CONTRAST 12/28/2024 REASON FOR EXAM: HIGH RESOLUTION FOR CHRONIC COUGH TECHNIQUE: Chest CT without contrast. Coronal and Sagittal reconstruction series were provided. One or more dose reduction techniques were used (e.g., Automated exposure control, adjustment of the mA and/or kV according to patient size, use of iterative reconstruction technique RADIATION DOSE SUMMARY: CTDlvol: 19.20 mGy DLP: 793.97 mGycm COMPARISON: Previous chest x-rays FINDINGS: Lung windows show underlying emphysema with nonspecific pleural thickening in both apices in both hemithoraces. Diffuse interstitial fibrotic changes noted in both lung guillermo in a pattern suggestive of UIP. Peripheral honeycombing noted throughout both lung guillermo. No subpleural nodules, evidence of organized infiltrate or effusion. No suspicious noncalcified mass or nodule. Traction bronchiectatic changes noted in both lower lung guillermo. Soft tissue windows show a normal-appearing thyroid gland. No suspicious adenopathy. Punctate coronary artery calcifications are noted the thoracic aorta tapers normally. Bony structures show degenerative change. Limited cuts of the upper abdomen do not show a suspicious abnormality. CT/Chest without Contrast IMPRESSION: Coronary artery calcification (CAC) is is present Diffuse interstitial fibrotic changes throughout both lung guillermo in a pattern suggestive of UIP. No organized infiltrate, effusion or suspicious noncalcified mass or nodule. Reading Location: [id number]
== END | disposition home or self-care (01) ==
LOC: CT 18:21
PROVIDERS: PCP Family Medicine; Referring Provider Internal Medicine Critical Care Medicine; Visit Provider Internal Medicine Critical Care Medicine
DX: R05.3 Chronic cough (principal)
CPT/HCPCS: 71250

== ENCOUNTER → 2025-01-06 | Outpatient (CLI) | payer MEDICARE, OTHER, SELFPAY ==
[2025-01-07 11:09] LABS: ANTINUCLEAR ANTIBODIES DIRECT Positive (Negative)
[2025-01-07 18:08] LABS: Cytoplasmic Ab (C-ANCA) <1:20 titer (Neg:<1:20); Perinuclear Ab (P-ANCA) <1:20 titer (Neg:<1:20)
== END | disposition home or self-care (01) ==
LOC: PAVLAB 09:48
PROVIDERS: PCP Family Medicine; Referring Provider Nurse Practitioner Acute Care; Visit Provider Nurse Practitioner Acute Care
DX: J84.9 Interstitial pulmonary disease, unspecified (principal)
CPT/HCPCS: 36415; 86037; 86038; 86200; 86431

== ENCOUNTER → 2025-01-07 | Outpatient (CLI) | payer MEDICARE, OTHER, SELFPAY ==
--- NOTE | 2025-01-07 10:32 | ST.MBS ---
Modified Barium Swallow Patient Information Study Date: 01/07/25 Study Time: 13:00 Direct Billable Minutes: 105 Total Minutes procedure & reportin Diagnosis: Dysphagia R13.10 Referring Physician: Zachery Rivera Reason for Referral: Assess swallow function, assess risk for aspiration, and determine recommendations for least restrictive diet textures and compensatory strategies to improve safety of swallow. Medical History: PMH: Chronic cough, Wears glasses, Arthritis, Non-smoker, Hx of colonic polyps, Right shoulder injury, High cholesterol, HTN, Hearing problem, Back problem. Pulmonology referred the patient for a swallowing evaluation at [facility], completed 12/28/2024. BSE recommended Regular textures / Thin liquids w/ plan for MBSS to further evaluate concern for aspiration and pharyngoesophageal dysphagia. Per patient report to [facility] [employer], he has had a cough for some time and undergone work up w/ pulmonology. Per pulmonology note, there is some concern for interstitial lung disease from recent pulmonary function test. He reported to [facility] coughing up globs of white, thick mucus. He reports coughing on food, liquids, and saliva w/ concern for these items ?going down the wrong way?. Hx of PNA 1X (~2021). When [employer] [facility] inquired about injury or sx to the head or neck, pt [place] in the [place] w/ brief LOC, no formal work ups following falls. He also reports GERD symptoms that can flare up daily or he will go weeks w/o symptoms. GERD symptoms include HB, managed by TUMS, and occ regurgitation of acid into his mouth in the middle of the night. When he is down on his weight, he has much less GERD symptoms. He reports weight fluctuation throughout his adult life. Current Diet Ordered: Regular textures / Thin liquids Dentition: WNL and Natural Teeth Mental Status: WNL Respiratory Status: Oxygenating on Room Air Penetration-Aspiration Scale Penetration-Aspiration Scale: OBJECTIVE ASSESSMENT OF SWALLOW FUNCTION (QUANTITATIVE ? PER TRIAL): PENETRATION / ASPIRATION SCALE (MCKEE): 1 = does not enter airway 2 = enters airway/above vocal folds/ejected 3 = enters airway/above vocal folds/not ejected 4 = enters airway/contacts vocal folds/ejected 5 = enters airway/contacts vocal folds/not ejected 6 = enters airway/below vocal folds/ejected 7 = enters airway/below vocal folds/not ejected despite effort 8 = enters airway/below vocal folds/no effort VIDEOFLOROSCOPIC SCALE SCORE (MCKEE): Grade I = aspiration of material that has penetrated into the laryngeal vestibule, intact cough reflex Grade II = aspiration < 10 % of the bolus, intact cough reflex Grade III = aspiration of < 10 % of the bolus, reduced cough reflex or aspiration of > 10 % of the bolus, intact cough reflex Grade IV = aspiration of > 10 % of the bolus, reduced cough reflex Penetration-Aspiration Scale Score Thin Liquid via teaspoon: Result: 1= does not enter airway Thin Liquid via teaspoon Trial 2: Result: 1= does not enter airway Thin Liquid via large single sip: cup: Result: 1= does not enter airway Thin Liquid via sequential sips: cup: Result: 2= enter airway/above vocal folds/ejected Comment: Esophageal screen - Complete clearance. Pudding via teaspoon: Result: 1= does not enter airway Comment: Esophageal screen - Complete clearance. 1/2 Cookie: Result: 1= does not enter airway Comment: Esophageal screen - Complete clearance. Thin Liquid via sequential sips:straw: Result: 2= enter airway/above vocal folds/ejected Comment: Esophageal screen - Minimal retention in the lower esophagus. Thin Liquid via sequential sips: cup Effortful swallow: Result: 2= enter airway/above vocal folds/ejected Oral Phase Bolus Preparation/Mastication: Timely and efficient chewing and mashing Pharyngeal Phase Soft Palate Elevation: Trace column of contrast/air between soft palate and pharyngeal wall Laryngeal Elevation: Comp. Superior move thyroid cart w/comp. apprx arytenoid cart-epig pet Anterior Hyoid Excursion: Partial anterior movement Epiglottic Movement: Partial inversion (inconsistent) Laryngeal Vestibule Closure at Height of Swallow: Incomplete; narrow column of air/contrast in laryngeal vestibule Pharyngeal Stripping Wave: Present - complete Pharyngoesophageal Segment Opening: Parital distension and partial duration; parital obstruction of flow Tongue Base Retraction: Trace column of contrast between tongue base & post. pharyngeal wall Pharyngeal Residue: Trace residue within or on pharyngeal structures Esophageal Phase Esophageal Clearance: Esophageal retention w/ retrograde flow through pharyngoesophageal seg (Trace retention of mildly thick liquids in UES w/ retrograde flow to the pyriform sinuses.) Treatment Strategies Effects of treatment strategies attemped:: Slowed rate = effective Effortful swallow = effective Diagnosis/Impression Diagnosis: Mild pharyngeal dysphagia R13.13 Impression: Oral phase is grossly WNL. Pharyngeal phase is marked by... -Mildly decreased airway closure due to decreased anterior hyoid excursion and (inconsistent) partial epiglottic inversion. -Sequential sips of thin liquids via cup resulted in laryngeal penetration w/ complete ejection after the final swallow. No aspiration observed. Effortful swallow was effective in reducing amount and depth of laryngeal penetration. Esophageal phase is marked by... -Trace retention of mildly thick liquids in UES w/ retrograde flow to the pyriform sinuses. -Minimal retention of thin liquids in the lower esophagus. Other findings: Small, anterior, bony protrusions on C4-C5. Trace retention of mildly liquids in UES w/ retrograde flow; otherwise, no significant impact on swallow function. Recommendations Diet: Regular Textures and Thin Liquids Compensatory Strategies: Small Bites, Small Sips (hard/effortful swallows if taking sequential sips), Slow Rate, Alternate bites/solids and sips/liquids, Sitting upright and Remain sitting upright for 30 minutes after PO intake Recommend Repeat Modified Barium Swallow: No Need for Skilled Speech Therapy Services: Yes Comment: -Review and train in strategies to decrease risk for aspiration. -GERD education (lifestyle management strategies). -Train in pharyngeal strengthening to promote improved airway closure (Cristhian, effortful, CTAR). Recommended Referrals: GI Consult (Consider GI consult. See esophageal phase findings above. Pt is verbalizing GERD symptoms at home, occasionally coughing on acid coming up into his mouth at night.) Education Completed: 1. Described result of evaluation. and 2. Pt understands evaluation & agrees with goals and treatment plan. Status Active ST Patient: Active Contact Information [facility] Speech Therapy:: Jackelyn Brady M.A. [facility]? Speech-Language Pathologist?? [facility] [address] [place] [address]? [email or web address]?? [phone]
== END | disposition home or self-care (01) ==
LOC: RAD 09:24
PROVIDERS: PCP Family Medicine; Referring Provider Internal Medicine Critical Care Medicine; Visit Provider Internal Medicine Critical Care Medicine
DX: R13.10 Dysphagia, unspecified (principal)
CPT/HCPCS: 74230; 92611

== ENCOUNTER → 2025-02-04 | Outpatient (CLI) | payer MEDICARE, OTHER, SELFPAY ==
[2025-02-05 14:08] LABS: ANTINUCLEAR ANTIBODIES DIRECT Positive (Negative); Anti-Chromatin <0.2 AI (0.0-0.9); Anti-Jo <0.2 AI (0.0-0.9); Anti-dsDNA Ab <1 IU/mL (0-9); SJOGREN'S Anti-SS-A test < 0.2 AI (0.0-0.9); SJOGREN'S Anti-SS-B test < 0.2 AI (0.0-0.9)
== END | disposition home or self-care (01) ==
LOC: LAB 12:04
PROVIDERS: PCP Family Medicine; Referring Provider Internal Medicine Critical Care Medicine; Visit Provider Internal Medicine Critical Care Medicine
DX: J98.4 Other disorders of lung (principal)
CPT/HCPCS: 36415; 86038; 86225; 86235

== ENCOUNTER → 2025-02-08 | Outpatient (CLI) | payer MEDICARE, OTHER, SELFPAY | END | disposition home or self-care (01) | LOC: MTRAD 10:31 | PROVIDERS: PCP Family Medicine; Referring Provider Nurse Practitioner Family; Visit Provider Nurse Practitioner Family | DX: R05.3 Chronic cough (principal) | CPT/HCPCS: 71046 ==

== ENCOUNTER 2025-03-16 08:30 | Outpatient (RCR) | payer MEDICARE, OTHER, SELFPAY ==
--- NOTE | 2024-12-28 14:30 | HP.SP.EVAL ---
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 Smoking Status: Never smoker Diagnosis Diagnosis: Dysphagia, unspecified R13.10 Pain Is pain an issue with your current prescribed condition?: No Personal Preferred language: Cameroonian Patient Allergies Allergies Allergies: Allergies Penicillins Allergy (Intermediate, Verified 10/28/24 10:02) Rash Subjective Dysphagia Symptoms Reported Symptoms/Problems with: Coughing, Choking, Difficulty Swallowing Solids, Difficulty Swallowing Liquids, Difficulty Swallowing Pills, Food gets stuck, Weight Loss and Hx of Pneumonia Current Diet Solids Current Diet: Regular Current Diet Liquids Current Liquids: Thin Barnhart free water Protocol: No Comments EAT-10: -: The Eating Assessment Tool (EAT-10) is a validated, 10-item patient-reported questionnaire used to screen for symptoms of dysphagia. Each item is scored on a scale from 0 (no problem) to 4 (severe problem), with a total score =3 considered clinically significant for potential swallowing difficulties. Patient’s EAT-10 Score: 4 1 – "Swallowing problem has caused me to lose weight" 1 – "When I swallow, food sticks in my throat" 2 – "I cough when I eat" This score suggests mild but clinically significant symptoms of dysphagia, warranting further assessment and monitoring. Objective Dysphagia Administered by Administered by: Self Thin Liquids Administred via: Cup Cough: none observed/unable to assess Pharyngeal phase: suspect pharyngeal deficits Comments: No signs or symptoms of aspiration were observed during administration of the 3 oz Weston Swallow Protocol. Swallowing Impairment Other: Concern for pharyngoesophageal phase dysphagia. Impact Impact on Safety & Functioning: Risk for Aspiration and Risk for Inadequate Nutrition/Hydration Recommendations Modified Barium Swallow/Cookie Swallow Recommended: Yes Diet Texture Recommendations Solids: Regular (Level 7) Liquids: Thin (Level 0) Safety Other: GERD precautions provided due to patient’s reports of heartburn, sensation of food getting stuck, and occasional reflux. Results Swallowing Diagnosis: Dysphagia Unspecified (R13.10) Severity: Mild Reference: Neuro-QoL instrument Radiation Oncology Patient Education Patient has Indicated that the Following Identified Educational Needs: None The Patient has indicated that they have no educational or learning abilities that may effect their care.: Yes Patient Instruction Patient Education: Diagnosis and Treatment Plan Other Education: MBSS Person Taught: Patient and Significant Other Teaching Method: Discussion Response to teaching: Verbalize Understanding
== END 2025-03-16 19:00 | disposition home or self-care (01) ==
LOC: SP 08:30
PROVIDERS: PCP Family Medicine; Referring Provider Internal Medicine Critical Care Medicine; Visit Provider Internal Medicine Critical Care Medicine
DX: R05.3 Chronic cough (principal)
CPT/HCPCS: 92526; 92610

== ENCOUNTER 2025-03-26 08:04 | Day surgery (SDC) | payer MEDICARE, OTHER, SELFPAY ==
[2025-03-26] MEDS: Lidocaine Jelly 2% 20 ML Syringe (URO-JET) 1 APPLIC (08:15)
[2025-03-26 08:58] VITALS: BP 149/88; PULSE 95; TEMP 37.1; O2SAT 100
== END 2025-03-26 08:52 | disposition home or self-care (01) ==
PROVIDERS: PCP Family Medicine; Referring Provider Family Medicine; Visit Provider Internal Medicine Gastroenterology
PROC: F00ZJWZ Instrumental Swallowing and Oral Function Assessment using Swallowing Equipment (ICD-10-PCS; CPT 43235; principal; 2025-03-26 07:55)
DX: R13.10 Dysphagia, unspecified (principal); K21.9 Gastro-esophageal reflux disease without esophagitis
CPT/HCPCS: 91010

== ENCOUNTER 2025-04-20 05:28 | Day surgery (SDC) | payer MEDICARE, OTHER, SELFPAY ==
[2025-04-20] VITALS (9 sets, daily range): BP systolic 99–143; BP diastolic 72–90; PULSE 64–76; RESP 16–18; TEMP 36.1–36.7; O2SAT 95–98; BMI 31.6
[2025-04-20] MEDS: Lactated Ringers 1,000 ML 15 ML IV (06:16)
== END 2025-04-20 08:17 | disposition home or self-care (01) ==
LOC: EN 05:28 → AC 05:29
PROVIDERS: PCP Family Medicine; Referring Provider Family Medicine; Visit Provider Internal Medicine Gastroenterology
PROC: (CPT 43235; principal; 2025-04-20 06:25)
DX: K21.9 Gastro-esophageal reflux disease without esophagitis (principal); J84.9 Interstitial pulmonary disease, unspecified; R13.10 Dysphagia, unspecified; Z79.899 Other long term (current) drug therapy; K29.80 Duodenitis without bleeding; E78.00 Pure hypercholesterolemia, unspecified; R06.09 Other forms of dyspnea; R10.9 Unspecified abdominal pain; R76.0 Raised antibody titer; K30 Functional dyspepsia; K22.89 Other specified disease of esophagus
CPT/HCPCS: 43235; 88305; 88342; J2405

== ENCOUNTER → 2025-06-16 | Outpatient (CLI) | payer MEDICARE, OTHER, SELFPAY ==
[2025-06-16 17:24] LABS: Hematocrit 44.8 % (40-54); Hemoglobin 15.2 g/dL (13.0-16.5); Immature Granulocytes Count 0.020 X10^3/uL (0.0-0.0); Mean Corp Hgb Conc 33.9 g/dL (32-36); Mean Corpuscular Volume 91.1 fL (80-94); Mean Platelet Vol. 9.2 fl (6.2-12.0); NRBC Flagged by Analyzer 0 % (0-5); Platelet Count 310 K/mm3 (150-450); RBC Distribution Width CV 12.2 % (11.6-14.6); RBC Distribution Width SD 40.6 fl (35.1-43.9); Red Blood Count 4.92 M/mm3 (4.6-6.2); White Blood Count 8.5 K/mm3 (4.4-11.0)
[2025-06-16 18:11] LABS: AST(SGOT) 39 U/L (<=37); Alanine Aminotransfer ALT/SGPT 72 U/L (<=46); Albumin, Serum 4.4 g/dL (3.4-4.8); Alkaline Phosphatase 84 U/L (40-129); Anion Gap 12 (5-15); BUN 17 mg/dL (4-19); BUN/Creat Ratio 14.8 RATIO (10-20); Calcium,Total 9.8 mg/dL (7.6-11.0); Carbon Dioxide 25.6 mmol/L (21.0-32.0); Chloride 103 mmol/L (98-108); Cholesterol 231 mg/dL (<=200); Globulin 3.1 g/dL (2.2-4.2); Glucose 93 mg/dL (70-99); Low Density Lipoprotein Calc. 146 mg/dL; Potassium 4.1 mmol/L (3.3-5.1); Triglycerides 247 mg/dL; Very Low Density Lipoprotein 49 mg/dL (5-40); cholesterol:hdl ratio screen 5.76
== END | disposition home or self-care (01) ==
LOC: MTLAB 15:53
PROVIDERS: PCP Family Medicine; Referring Provider Family Medicine; Visit Provider Family Medicine
DX: J84.9 Interstitial pulmonary disease, unspecified (principal); I10 Essential (primary) hypertension
CPT/HCPCS: 36415; 80053; 80061; 85025